=== PATIENT | male | born 1960 | race Caucasian/White ===

== ENCOUNTER 2017-08-17 09:04 | Emergency (ER) | payer BC ==
[~2017-08-17] VITALS: Ht 177.8 cm; Wt 65.0 kg
[~2017-08-17 09:04] MED LIST: MULT1TAB9 PO
[2017-08-17 09:05] VITALS: BP 142/82
[2017-08-17] MEDS ORDERED: DIAZEPAM 5 MG TABLET ONE (09:25)
[2017-08-17] MEDS ORDERED: OXYcodone/APAP 5/325MG TABLET ONE (09:25)
[2017-08-17] MEDS ORDERED: KETOROLAC 30 MG/1 ML ONE (09:25)
[2017-08-17] MEDS ORDERED: DIAZEPAM 5 MG TABLET PO ONE (09:30)
[2017-08-17] MEDS ORDERED: KETOROLAC 30 MG/1 ML IM ONE (09:30)
[2017-08-17] MEDS ORDERED: OXYcodone/APAP 5/325MG TABLET PO ONE (09:30)
== END 2017-08-17 12:18 | disposition home or self-care (01) ==
LOC: ED 10:28
DX: S29.012A Strain of muscle and tendon of back wall of thorax, initial encounter (principal); J44.9 Chronic obstructive pulmonary disease, unspecified; W01.0XXA Fall on same level from slipping, tripping and stumbling without subsequent striking against object, initial encounter; Y93.89 Activity, other specified; Y92.89 Other specified places as the place of occurrence of the external cause; Y99.8 Other external cause status
CPT/HCPCS: 72128; 96372; 99284; J1885

== ENCOUNTER 2017-08-23 13:25 | Emergency (ER) | payer BC ==
[~2017-08-23] VITALS: Ht 177.8 cm; Wt 63.4 kg
[2017-08-23 13:26] VITALS: BP 127/78
[2017-08-23] MEDS ORDERED: KETOROLAC 30 MG/1 ML IM ONE (14:00)
[2017-08-23] MEDS ORDERED: DIAZEPAM 5 MG TABLET PO ONE (14:00)
[2017-08-23] MEDS ORDERED: OXYcodone/APAP 7.5/325MG TABLET PO ONE (14:00)
[2017-08-23] MEDS ORDERED: KETOROLAC 30 MG/1 ML ONE (14:33)
[2017-08-23] MEDS ORDERED: DIAZEPAM 5 MG TABLET ONE (14:33)
[2017-08-23] MEDS ORDERED: OXYcodone/APAP 7.5/325MG TABLET ONE (14:45)
== END 2017-08-23 15:31 | disposition home or self-care (01) ==
LOC: ED 15:25
DX: S29.012A Strain of muscle and tendon of back wall of thorax, initial encounter (principal); J44.9 Chronic obstructive pulmonary disease, unspecified; F17.210 Nicotine dependence, cigarettes, uncomplicated; W01.0XXA Fall on same level from slipping, tripping and stumbling without subsequent striking against object, initial encounter; Y93.89 Activity, other specified; Y99.8 Other external cause status; Y92.89 Other specified places as the place of occurrence of the external cause
CPT/HCPCS: 72072; 96372; 99284; J1885

== ENCOUNTER 2017-10-08 21:31 | Inpatient (IN) | payer BC ==
[~2017-10-08] VITALS: Ht 177.8 cm; Wt 65.5 kg
[2017-10-08 23:07] LABS: BASOPHILS # (AUTO) 0.11 x10^3/uL (0-0.1); BASOPHILS % (AUTO) 1 % (0-1); EOSINOPHILS # (AUTO) 0.02 x10^3/uL (0-0.4); EOSINOPHILS % (AUTO) 0 % (1-7); LYMPHOCYTES # (AUTO) 0.75 x10^3/uL (1-3.4); LYMPHOCYTES % (AUTO) 7 % (22-44); MD NO; MEAN CORPUSCULAR HEMOGLOBIN 33.8 pg (27.5-34.5); MEAN CORPUSCULAR HGB CONC 34.1 g/dL (33.2-36.2); MEAN CORPUSCULAR VOLUME 99.2 fL (81-97); MEAN PLATELET VOLUME 7.1 fL (7.4-10.4); MONOCYTES # (AUTO) 1.12 x10^3/uL (0.2-0.8); MONOCYTES % (AUTO) 10 % (2-9); NEUTROPHILS # (AUTO) 9.09 x10^3/uL (1.8-6.8); NEUTROPHILS % (AUTO) 82 % (42-75); PLATELET COUNT 200 x10^3/uL (130-400); RED BLOOD COUNT 3.49 x10^6/uL (4.38-5.82); RED CELL DISTRIBUTION WIDTH 13.8 % (9.4-14.8)
[2017-10-08 23:14] LABS: ALANINE AMINOTRANSFERASE 30 U/L (12-78); ALBUMIN 3.1 g/dL (3.4-5.0); ANION GAP 7 mmol/L (5-15); CALCIUM 8.2 mg/dL (8.5-10.1); CHLORIDE 104 mmol/L (98-107); CREATININE 0.97 mg/dL (0.7-1.3)
[2017-10-08] MEDS ORDERED: PANTOPRAZOLE 80 MG in SODIUM CHLORIDE 0.9% 50 ML IVPB ONE (23:14)
[2017-10-08 23:17] LABS: ALKALINE PHOSPHATASE 106 U/L (45-117); BILIRUBIN,TOTAL 0.5 mg/dL (0.2-1.0)
[2017-10-08 23:24] LABS: INTERNATIONAL NORMALIZED RATIO 1.01 (0.93-1.1); PROTHROMBIN TIME 10.4 Seconds (9.6-11.5)
[2017-10-08] MEDS ORDERED: SODIUM CHLORIDE FLUSH 10ML SYR IVF ONE (23:30)
[2017-10-08] MEDS ORDERED: SODIUM CHLORIDE 0.9% 1,000ML IVBOLUS ONE (23:30)
[2017-10-09] MEDS: PANTOPRAZOLE 80 MG in SODIUM CHLORIDE 0.9% 100 ML IV SCH ×3 (00:19→17:45)
[2017-10-09] MEDS ORDERED: LORazepam 2 MG/ML, 1ML IV PRN ×5 (00:30)
[2017-10-09] MEDS ORDERED: LORazepam 0.5MG TABLET PO PRN (00:30)
[2017-10-09] MEDS ORDERED: ENALAPRILAT 1.25 MG/ML, 2ML IVPush PRN (00:30)
[2017-10-09] MEDS ORDERED: ONDANSETRON 2MG/ML, 2ML IVPush PRN (00:30)
[2017-10-09] MEDS ORDERED: METOCLOPRAMIDE 5 MG/ML, 2ML IVPush PRN (00:30)
[2017-10-09] MEDS ORDERED: ONDANSETRON ODT 4 MG PO PRN (00:30)
[2017-10-09] MEDS ORDERED: LORazepam 1MG TABLET PO PRN ×4 (00:30)
[2017-10-09] MEDS ORDERED: LABETALOL 5MG/ML, 20ML IVPush PRN (00:30)
[2017-10-09] MEDS ORDERED: METO25TA35 PO (00:57)
[2017-10-09] MEDS ORDERED: TIOT18CA INH (00:57)
[2017-10-09] MEDS ORDERED: ALBU1.25 NEB (00:57)
[2017-10-09] MEDS ORDERED: ASPI-496 PO (00:57)
[2017-10-09 01:05] LABS: FOLATE LEVEL 13.6 ng/mL (3.1-17.5)
[2017-10-09] MEDS ORDERED: IPRATROPIUM 0.5 MG/2.5 ML INHA ONE (01:37)
[2017-10-09 01:50] VITALS: BP 148/86
[2017-10-09] MEDS: SODIUM CHLORIDE 0.9% 1,000 ML IV SCH ×3 (02:12→21:57)
[2017-10-09] MEDS: NICOTINE 14MG/24 HR PATCH.TD24 TD SCH (02:16)
[2017-10-09] MEDS: IPRATROPIUM 0.5 MG/2.5 ML INHA NPPB SCH ×4 (03:00→19:18)
[2017-10-09] MEDS ORDERED: ALBUTEROL SULFATE 2.5 MG/3 ML NPPB PRN (03:00)
[2017-10-09] MEDS: METOPROLOL TARTRATE 25 MG TABLET PO SCH ×2 (05:51→18:06)
[2017-10-09] MEDS: MULTIVITAMINS/MINERALS TABLET PO SCH (08:29)
[2017-10-09] MEDS: FOLIC ACID 1 MG TABLET PO SCH (08:29)
[2017-10-09] MEDS: THIAMINE 100MG TABLET PO SCH (08:29)
[2017-10-09 09:00] VITALS: BP 148/76
[2017-10-09] MEDS ORDERED: FOLIC ACID PO SCH (09:00)
[2017-10-09] MEDS ORDERED: MULTIVITAMIN PO SCH (09:00)
[2017-10-09] MEDS ORDERED: IRON PO SCH (09:00)
[2017-10-09] MEDS ORDERED: [UNRECOGNIZED DRUG - OTHER] PO SCH (09:00)
[2017-10-09] MEDS: OXYcodone/APAP 5/325MG TABLET PO PRN ×2 (09:45→18:06)
[2017-10-09 15:08] VITALS: BP_SYST 123; BP_SYST 146; BP_DIAS 72; BP_DIAS 97
[2017-10-09 19:17] VITALS: BP 136/61
[2017-10-10 01:03] VITALS: BP 129/68
[2017-10-10 01:06] VITALS: BP 136/82
[2017-10-10] MEDS: IPRATROPIUM 0.5 MG/2.5 ML INHA NPPB SCH ×4 (03:00→19:47)
[2017-10-10] MEDS: METOPROLOL TARTRATE 25 MG TABLET PO SCH ×2 (06:00→17:37)
[2017-10-10] MEDS: NICOTINE 14MG/24 HR PATCH.TD24 TD SCH (06:01)
[2017-10-10 06:40] LABS: BASOPHILS # (AUTO) 0.04 x10^3/uL (0-0.1); BASOPHILS % (AUTO) 1 % (0-1); EOSINOPHILS # (AUTO) 0.07 x10^3/uL (0-0.4); EOSINOPHILS % (AUTO) 1 % (1-7); LYMPHOCYTES # (AUTO) 1.27 x10^3/uL (1-3.4); LYMPHOCYTES % (AUTO) 24 % (22-44); MD NO; MEAN CORPUSCULAR VOLUME 99.8 fL (81-97); MEAN PLATELET VOLUME 7.2 fL (7.4-10.4); MONOCYTES # (AUTO) 0.59 x10^3/uL (0.2-0.8); MONOCYTES % (AUTO) 11 % (2-9); NEUTROPHILS # (AUTO) 3.28 x10^3/uL (1.8-6.8); NEUTROPHILS % (AUTO) 63 % (42-75); PLATELET COUNT 184 x10^3/uL (130-400); RED BLOOD COUNT 3.07 x10^6/uL (4.38-5.82); RED CELL DISTRIBUTION WIDTH 13.9 % (9.4-14.8)
[2017-10-10 06:48] LABS: ALBUMIN 2.7 g/dL (3.4-5.0); ANION GAP 6 mmol/L (5-15); CALCIUM 7.8 mg/dL (8.5-10.1); CHLORIDE 107 mmol/L (98-107)
[2017-10-10 06:52] LABS: ALANINE AMINOTRANSFERASE 24 U/L (12-78); ALKALINE PHOSPHATASE 88 U/L (45-117); BILIRUBIN,TOTAL 0.5 mg/dL (0.2-1.0); CHOL/HDL RATIO 2.5; CHOLESTEROL, TOTAL 94 mg/dL (140-239); CREATININE 0.83 mg/dL (0.7-1.3); HDL CHOL % 39 % (26-37); HDL CHOLESTEROL (DIRECT) 37 mg/dL (40-60); LDL CHOLESTEROL,CALCULATED 36 mg/dL (54-169); TOTAL PROTEIN 5.6 g/dL (6.4-8.2); TRIGLYCERIDES 104 mg/dL (50-200); VLDL CHOLESTEROL 21 mg/dL (0-25)
[2017-10-10 07:39] VITALS: BP 131/73
[2017-10-10] MEDS: FOLIC ACID 1 MG TABLET PO SCH (08:47)
[2017-10-10] MEDS: THIAMINE 100MG TABLET PO SCH (08:47)
[2017-10-10] MEDS: PANTOPRAZOLE 40 MG IV IVPush SCH (08:47)
[2017-10-10] MEDS: MULTIVITAMINS/MINERALS TABLET PO SCH (08:47)
[2017-10-10] MEDS: SODIUM CHLORIDE 0.9% 1,000 ML IV SCH ×2 (08:47→17:37)
[2017-10-10] MEDS: OXYcodone/APAP 5/325MG TABLET PO PRN (09:19)
[2017-10-10 13:04] VITALS: BP 125/69
[2017-10-10 17:36] VITALS: BP 112/69
[2017-10-10 19:40] VITALS: BP 111/67
[2017-10-11 01:55] VITALS: BP 121/68
[2017-10-11] MEDS: IPRATROPIUM 0.5 MG/2.5 ML INHA NPPB SCH ×4 (03:00→20:30)
[2017-10-11] MEDS: SODIUM CHLORIDE 0.9% 1,000 ML IV SCH ×2 (03:50→14:33)
[2017-10-11] MEDS: NICOTINE 14MG/24 HR PATCH.TD24 TD SCH (05:28)
[2017-10-11] MEDS: METOPROLOL TARTRATE 25 MG TABLET PO SCH ×2 (05:28→17:48)
[2017-10-11 06:04] LABS: BASOPHILS # (AUTO) 0.03 x10^3/uL (0-0.1); BASOPHILS % (AUTO) 1 % (0-1); EOSINOPHILS # (AUTO) 0.04 x10^3/uL (0-0.4); EOSINOPHILS % (AUTO) 1 % (1-7); LYMPHOCYTES # (AUTO) 0.89 x10^3/uL (1-3.4); LYMPHOCYTES % (AUTO) 22 % (22-44); MD NO; MEAN CORPUSCULAR HEMOGLOBIN 33.7 pg (27.5-34.5); MEAN CORPUSCULAR HGB CONC 34.1 g/dL (33.2-36.2); MEAN CORPUSCULAR VOLUME 98.9 fL (81-97); MEAN PLATELET VOLUME 7.1 fL (7.4-10.4); MONOCYTES # (AUTO) 0.58 x10^3/uL (0.2-0.8); MONOCYTES % (AUTO) 14 % (2-9); NEUTROPHILS # (AUTO) 2.53 x10^3/uL (1.8-6.8); NEUTROPHILS % (AUTO) 62 % (42-75); PLATELET COUNT 176 x10^3/uL (130-400); RED BLOOD COUNT 2.78 x10^6/uL (4.38-5.82); RED CELL DISTRIBUTION WIDTH 14.1 % (9.4-14.8)
[2017-10-11 07:31] VITALS: BP 113/70
[2017-10-11] MEDS: FOLIC ACID 1 MG TABLET PO SCH (09:41)
[2017-10-11] MEDS: THIAMINE 100MG TABLET PO SCH (09:42)
[2017-10-11] MEDS: PANTOPRAZOLE 40 MG IV IVPush SCH (09:42)
[2017-10-11] MEDS: MULTIVITAMINS/MINERALS TABLET PO SCH (09:42)
[2017-10-11] MEDS: OXYcodone/APAP 5/325MG TABLET PO PRN (10:46)
[2017-10-11 12:29] VITALS: BP 138/72
[2017-10-11] MEDS: MOVIPREP POWDER 1 PREP KIT PO SCH (17:48)
[2017-10-11 18:49] VITALS: BP 134/74
[2017-10-12 01:41] VITALS: BP 115/68
[2017-10-12] MEDS: MOVIPREP POWDER 1 PREP KIT PO SCH ×2 (03:28→11:10)
[2017-10-12] MEDS: METOPROLOL TARTRATE 25 MG TABLET PO SCH ×2 (05:35→18:24)
[2017-10-12] MEDS: NICOTINE 14MG/24 HR PATCH.TD24 TD SCH (05:35)
[2017-10-12 05:54] LABS: BASOPHILS # (AUTO) 0.04 x10^3/uL (0-0.1); BASOPHILS % (AUTO) 1 % (0-1); EOSINOPHILS % (AUTO) 2 % (1-7); LYMPHOCYTES # (AUTO) 0.86 x10^3/uL (1-3.4); LYMPHOCYTES % (AUTO) 17 % (22-44); MD NO; MEAN CORPUSCULAR HEMOGLOBIN 34.1 pg (27.5-34.5); MEAN CORPUSCULAR HGB CONC 33.9 g/dL (33.2-36.2); MEAN CORPUSCULAR VOLUME 100.6 fL (81-97); MEAN PLATELET VOLUME 6.9 fL (7.4-10.4); MONOCYTES # (AUTO) 0.55 x10^3/uL (0.2-0.8); MONOCYTES % (AUTO) 11 % (2-9); NEUTROPHILS # (AUTO) 3.43 x10^3/uL (1.8-6.8); NEUTROPHILS % (AUTO) 69 % (42-75); PLATELET COUNT 207 x10^3/uL (130-400); RED BLOOD COUNT 2.88 x10^6/uL (4.38-5.82); RED CELL DISTRIBUTION WIDTH 13.8 % (9.4-14.8)
[2017-10-12 06:01] LABS: ANION GAP 7 mmol/L (5-15); CALCIUM 7.9 mg/dL (8.5-10.1); CHLORIDE 110 mmol/L (98-107); CREATININE 0.83 mg/dL (0.7-1.3)
[2017-10-12 07:00] VITALS: BP 139/79
[2017-10-12] MEDS: IPRATROPIUM 0.5 MG/2.5 ML INHA NPPB SCH ×5 (08:00→20:00)
[2017-10-12] MEDS: PANTOPRAZOLE 40 MG IV IVPush SCH (08:35)
[2017-10-12] MEDS: MULTIVITAMINS/MINERALS TABLET PO SCH (08:36)
[2017-10-12] MEDS: FOLIC ACID 1 MG TABLET PO SCH (08:36)
[2017-10-12] MEDS: THIAMINE 100MG TABLET PO SCH (08:36)
[2017-10-12 10:34] LABS: MEAN CORPUSCULAR HEMOGLOBIN 34.7 pg (27.5-34.5); MEAN CORPUSCULAR HGB CONC 34.6 g/dL (33.2-36.2); MEAN CORPUSCULAR VOLUME 100.3 fL (81-97); MEAN PLATELET VOLUME 7.2 fL (7.4-10.4); PLATELET COUNT 233 x10^3/uL (130-400); RED BLOOD COUNT 2.25 x10^6/uL (4.38-5.82); RED CELL DISTRIBUTION WIDTH 13.8 % (9.4-14.8)
[2017-10-12 10:41] LABS: ALBUMIN 2.2 g/dL (3.4-5.0); ANION GAP 9 mmol/L (5-15); CALCIUM 6.7 mg/dL (8.5-10.1); CHLORIDE 113 mmol/L (98-107)
[2017-10-12 10:47] LABS: ALANINE AMINOTRANSFERASE 28 U/L (12-78); ALKALINE PHOSPHATASE 60 U/L (45-117); BILIRUBIN,TOTAL 0.3 mg/dL (0.2-1.0); TOTAL PROTEIN 4.6 g/dL (6.4-8.2); TROPONIN I < 0.015 ng/mL (0.000-0.045)
[2017-10-12 11:04] VITALS: BP 106/65
[2017-10-12] MEDS: SODIUM CHLORIDE 0.9% 1,000 ML IV SCH ×3 (11:10→20:11)
[2017-10-12] MEDS ORDERED: LABETALOL 5MG/ML, 20ML ONE (11:18)
[2017-10-12] MEDS ORDERED: PROPOFOL 10 MG/ML, 20ML ONE (11:18)
[2017-10-12] MEDS ORDERED: SUCCINYLCHOLINE 20 MG/ML, 10ML ONE (11:18)
[2017-10-12] MEDS ORDERED: ALBUTEROL SULFATE 2.5 MG/3 ML NPPB PRN (12:00)
[2017-10-12] MEDS ORDERED: LABETALOL 5MG/ML, 20ML IV PRN (12:00)
[2017-10-12] MEDS ORDERED: FENTANYL PF 100 MCG/2ML IV PRN (12:00)
[2017-10-12] MEDS ORDERED: LORazepam 2 MG/ML, 1ML IVPush PRN (12:00)
[2017-10-12] MEDS ORDERED: OXYcodone 5 MG/5 ML ORAL.SOL UDC PO PRN (12:00)
[2017-10-12] MEDS ORDERED: PROMETHAZINE 25 MG/ML, 1ML IV PRN (12:00)
[2017-10-12] MEDS ORDERED: hydrALAzine 20 MG/ML, 1ML IV PRN (12:00)
[2017-10-12] MEDS ORDERED: HYDROmorphone 1 MG/ML, 1ML IV PRN (12:00)
[2017-10-12 12:18] VITALS: BP 132/70
[2017-10-12] MEDS ORDERED: PANTOPRAZOLE 80 MG in SODIUM CHLORIDE 0.9% 50 ML IV ONE (12:30)
[2017-10-12 12:38] LABS: MD YES
[2017-10-12 12:40] LABS: <PLATELET ESTIMATE> ADEQUATE; <PLT MORPHOLOGY> NORMAL PLT MORPH; ANISOCYTOSIS 1+; EOS#(MANUAL) 0.07 x10^3/uL (0.0-0.4); EOS% (MANUAL) 1 % (1-7); LYMPH#(MANUAL) 1.18 x10^3/uL (1-3.4); LYMPHS% (MANUAL) 16 % (22-44); MONOS#(MANUAL) 0.52 x10^3/uL (0.3-2.7); MONOS% (MANUAL) 7 % (2-9); SEG#(MANUAL) 5.62 x10^3/uL (1.8-6.8); SEGS% (MANUAL) 76 % (42-75)
[2017-10-12] MEDS: PANTOPRAZOLE 80 MG in SODIUM CHLORIDE 0.9% 100 ML IV SCH ×2 (14:31→23:05)
[2017-10-12] MEDS: DIPHENHYDRAMINE 50 MG/ML, 1ML IVPush PRN (22:11)
[2017-10-13] MEDS: IPRATROPIUM 0.5 MG/2.5 ML INHA NPPB SCH ×4 (02:52→21:00)
[2017-10-13] MEDS: SODIUM CHLORIDE 0.9% 1,000 ML IV SCH (05:08)
[2017-10-13] MEDS: NICOTINE 14MG/24 HR PATCH.TD24 TD SCH (05:15)
[2017-10-13] MEDS: METOPROLOL TARTRATE 25 MG TABLET PO SCH ×2 (06:00→18:00)
[2017-10-13 06:38] LABS: BASOPHILS # (AUTO) 0.03 x10^3/uL (0-0.1); BASOPHILS % (AUTO) 1 % (0-1); EOSINOPHILS # (AUTO) 0.07 x10^3/uL (0-0.4); EOSINOPHILS % (AUTO) 2 % (1-7); LYMPHOCYTES # (AUTO) 0.97 x10^3/uL (1-3.4); LYMPHOCYTES % (AUTO) 19 % (22-44); MD NO; MEAN CORPUSCULAR HEMOGLOBIN 33.2 pg (27.5-34.5); MEAN CORPUSCULAR HGB CONC 34.2 g/dL (33.2-36.2); MEAN CORPUSCULAR VOLUME 97.3 fL (81-97); MEAN PLATELET VOLUME 6.7 fL (7.4-10.4); MONOCYTES # (AUTO) 0.58 x10^3/uL (0.2-0.8); MONOCYTES % (AUTO) 11 % (2-9); NEUTROPHILS # (AUTO) 3.44 x10^3/uL (1.8-6.8); NEUTROPHILS % (AUTO) 68 % (42-75); PLATELET COUNT 198 x10^3/uL (130-400); RED BLOOD COUNT 2.65 x10^6/uL (4.38-5.82); RED CELL DISTRIBUTION WIDTH 16.1 % (9.4-14.8)
[2017-10-13 06:46] LABS: ANION GAP 7 mmol/L (5-15); CALCIUM 7.3 mg/dL (8.5-10.1); CHLORIDE 111 mmol/L (98-107)
[2017-10-13 06:47] LABS: CREATININE 0.83 mg/dL (0.7-1.3)
[2017-10-13] MEDS ORDERED: POTASSIUM CHLORIDE 10% 40 MEQ/30 ML UDC PO ONE (08:00)
[2017-10-13] MEDS: PANTOPRAZOLE 80 MG in SODIUM CHLORIDE 0.9% 100 ML IV SCH ×2 (13:06→21:23)
[2017-10-13] MEDS: MULTIVITAMINS/MINERALS TABLET PO SCH (13:11)
[2017-10-13] MEDS: FOLIC ACID 1 MG TABLET PO SCH (13:11)
[2017-10-13] MEDS ORDERED: POTASSIUM CHLORIDE 10% 40 MEQ/30 ML UDC ONE (13:13)
[2017-10-13 17:42] VITALS: BP 125/73
[2017-10-13 18:39] VITALS: BP 122/49
[2017-10-13] MEDS: DIPHENHYDRAMINE 50 MG/ML, 1ML IVPush PRN (21:23)
[2017-10-14 01:15] VITALS: BP 104/61
[2017-10-14] MEDS: IPRATROPIUM 0.5 MG/2.5 ML INHA NPPB SCH ×4 (02:51→15:54)
[2017-10-14] MEDS: METOPROLOL TARTRATE 25 MG TABLET PO SCH ×2 (03:55→17:43)
[2017-10-14] MEDS: NICOTINE 14MG/24 HR PATCH.TD24 TD SCH (05:23)
[2017-10-14] MEDS ORDERED: POTASSIUM CHLORIDE 40 MEQ in SODIUM CHLORIDE 0.9% 500 ML IV ONE (06:30)
[2017-10-14 06:43] LABS: ANION GAP 4 mmol/L (5-15); CHLORIDE 110 mmol/L (98-107); CREATININE 0.76 mg/dL (0.7-1.3)
[2017-10-14] MEDS: THIAMINE 100MG TABLET PO SCH (08:37)
[2017-10-14] MEDS: MULTIVITAMINS/MINERALS TABLET PO SCH (08:37)
[2017-10-14] MEDS: FOLIC ACID 1 MG TABLET PO SCH (08:37)
[2017-10-14] MEDS: PANTOPRAZOLE 80 MG in SODIUM CHLORIDE 0.9% 100 ML IV SCH ×2 (08:38→17:43)
[2017-10-14] MEDS: OXYcodone/APAP 5/325MG TABLET PO PRN (08:38)
[2017-10-14 09:58] VITALS: BP 99/61
[2017-10-14] MEDS ORDERED: ALBUTEROL/IPRATROPIUM 2.5MG/0.5MG, 3 ML HHN SCH (11:00)
[2017-10-14 12:53] LABS: BASOPHILS # (AUTO) 0.03 x10^3/uL (0-0.1); BASOPHILS % (AUTO) 1 % (0-1); EOSINOPHILS # (AUTO) 0.09 x10^3/uL (0-0.4); EOSINOPHILS % (AUTO) 2 % (1-7); LYMPHOCYTES # (AUTO) 0.96 x10^3/uL (1-3.4); LYMPHOCYTES % (AUTO) 16 % (22-44); MD NO; MEAN CORPUSCULAR HEMOGLOBIN 33.7 pg (27.5-34.5); MEAN CORPUSCULAR HGB CONC 33.9 g/dL (33.2-36.2); MEAN CORPUSCULAR VOLUME 99.3 fL (81-97); MONOCYTES # (AUTO) 0.81 x10^3/uL (0.2-0.8); MONOCYTES % (AUTO) 13 % (2-9); NEUTROPHILS # (AUTO) 4.16 x10^3/uL (1.8-6.8); NEUTROPHILS % (AUTO) 69 % (42-75); PLATELET COUNT 227 x10^3/uL (130-400); RED BLOOD COUNT 2.43 x10^6/uL (4.38-5.82); RED CELL DISTRIBUTION WIDTH 16.2 % (9.4-14.8)
[2017-10-14] MEDS ORDERED: MAGNESIUM SULFATE PMX 2GM/50ML 50 ML IV ONE (15:00)
[2017-10-14 15:55] VITALS: BP 105/67
[2017-10-14 19:01] LABS: BASOPHILS # (AUTO) 0.04 x10^3/uL (0-0.1); BASOPHILS % (AUTO) 1 % (0-1); EOSINOPHILS # (AUTO) 0.13 x10^3/uL (0-0.4); EOSINOPHILS % (AUTO) 2 % (1-7); LYMPHOCYTES # (AUTO) 0.96 x10^3/uL (1-3.4); LYMPHOCYTES % (AUTO) 15 % (22-44); MD NO; MEAN CORPUSCULAR HGB CONC 34.3 g/dL (33.2-36.2); MEAN CORPUSCULAR VOLUME 99.2 fL (81-97); MEAN PLATELET VOLUME 7.3 fL (7.4-10.4); MONOCYTES # (AUTO) 0.93 x10^3/uL (0.2-0.8); MONOCYTES % (AUTO) 15 % (2-9); NEUTROPHILS # (AUTO) 4.29 x10^3/uL (1.8-6.8); NEUTROPHILS % (AUTO) 68 % (42-75); PLATELET COUNT 200 x10^3/uL (130-400); RED BLOOD COUNT 2.23 x10^6/uL (4.38-5.82); RED CELL DISTRIBUTION WIDTH 15.8 % (9.4-14.8)
[2017-10-14 19:42] VITALS: BP 103/64
[2017-10-14] MEDS: DIPHENHYDRAMINE 50 MG/ML, 1ML IVPush PRN (19:45)
[2017-10-14] MEDS: TEMAZEPAM 15 MG CAPSULE PO PRN (21:34)
[2017-10-15] VITALS (11 sets, daily range): BP systolic 91–110; BP diastolic 43–71
[2017-10-15] MEDS: IPRATROPIUM 0.5 MG/2.5 ML INHA NPPB SCH ×4 (03:00→20:53)
[2017-10-15] MEDS: METOPROLOL TARTRATE 25 MG TABLET PO SCH ×2 (03:45→18:00)
[2017-10-15] MEDS: NICOTINE 14MG/24 HR PATCH.TD24 TD SCH (06:03)
[2017-10-15] MEDS ORDERED: MAGNESIUM SULFATE PMX 2GM/50ML 50 ML IV ONE (06:30)
[2017-10-15 06:54] LABS: MD NO
[2017-10-15 06:56] LABS: BASOPHILS # (AUTO) 0.06 x10^3/uL (0-0.1); BASOPHILS % (AUTO) 1 % (0-1); EOSINOPHILS % (AUTO) 2 % (1-7); HEMOGRAM NOTE RECHECKED; LYMPHOCYTES # (AUTO) 0.74 x10^3/uL (1-3.4); LYMPHOCYTES % (AUTO) 15 % (22-44); MEAN CORPUSCULAR HEMOGLOBIN 33.3 pg (27.5-34.5); MEAN CORPUSCULAR HGB CONC 34.3 g/dL (33.2-36.2); MEAN CORPUSCULAR VOLUME 97.1 fL (81-97); MEAN PLATELET VOLUME 7.7 fL (7.4-10.4); MONOCYTES # (AUTO) 0.68 x10^3/uL (0.2-0.8); MONOCYTES % (AUTO) 14 % (2-9); NEUTROPHILS # (AUTO) 3.38 x10^3/uL (1.8-6.8); NEUTROPHILS % (AUTO) 68 % (42-75); PLATELET COUNT 185 x10^3/uL (130-400); RED BLOOD COUNT 2.53 x10^6/uL (4.38-5.82); RED CELL DISTRIBUTION WIDTH 16.7 % (9.4-14.8)
[2017-10-15 06:57] LABS: ALANINE AMINOTRANSFERASE 21 U/L (12-78); ALBUMIN 2.4 g/dL (3.4-5.0); ANION GAP 8 mmol/L (5-15); CALCIUM 7.7 mg/dL (8.5-10.1); CHLORIDE 105 mmol/L (98-107); CREATININE 0.81 mg/dL (0.7-1.3)
[2017-10-15 06:59] LABS: ALKALINE PHOSPHATASE 58 U/L (45-117); BILIRUBIN,TOTAL 0.8 mg/dL (0.2-1.0); TOTAL PROTEIN 4.9 g/dL (6.4-8.2)
[2017-10-15] MEDS: PANTOPRAZOLE 80 MG in SODIUM CHLORIDE 0.9% 100 ML IV SCH ×2 (07:56→19:34)
[2017-10-15] MEDS: FOLIC ACID 1 MG TABLET PO SCH (07:57)
[2017-10-15] MEDS: OMEPRAZOLE 20 MG CAPSULE.DR PO SCH ×2 (07:57→17:54)
[2017-10-15] MEDS: MULTIVITAMINS/MINERALS TABLET PO SCH (07:58)
[2017-10-15] MEDS: THIAMINE 100MG TABLET PO SCH (07:58)
[2017-10-15] MEDS: OXYcodone/APAP 5/325MG TABLET PO PRN (07:58)
[2017-10-15 19:34] LABS: MEAN CORPUSCULAR HEMOGLOBIN 33.4 pg (27.5-34.5); MEAN CORPUSCULAR HGB CONC 34.7 g/dL (33.2-36.2); MEAN CORPUSCULAR VOLUME 96.2 fL (81-97); MEAN PLATELET VOLUME 7.7 fL (7.4-10.4); PLATELET COUNT 213 x10^3/uL (130-400); RED BLOOD COUNT 2.85 x10^6/uL (4.38-5.82); RED CELL DISTRIBUTION WIDTH 16.7 % (9.4-14.8)
[2017-10-15 19:37] LABS: BASOPHILS # (AUTO) 0.02 x10^3/uL (0-0.1); BASOPHILS % (AUTO) 0 % (0-1); EOSINOPHILS # (AUTO) 0.16 x10^3/uL (0-0.4); EOSINOPHILS % (AUTO) 2 % (1-7); LYMPHOCYTES # (AUTO) 1.16 x10^3/uL (1-3.4); LYMPHOCYTES % (AUTO) 17 % (22-44); MD SCAN; MONOCYTES # (AUTO) 1.02 x10^3/uL (0.2-0.8); MONOCYTES % (AUTO) 15 % (2-9); NEUTROPHILS # (AUTO) 4.67 x10^3/uL (1.8-6.8); NEUTROPHILS % (AUTO) 66 % (42-75)
[2017-10-15] MEDS: TEMAZEPAM 15 MG CAPSULE PO PRN (20:27)
[2017-10-15] MEDS: DIPHENHYDRAMINE 50 MG/ML, 1ML IVPush PRN (20:27)
[2017-10-16 01:40] VITALS: BP 110/65
[2017-10-16] MEDS: IPRATROPIUM 0.5 MG/2.5 ML INHA NPPB SCH ×4 (03:00→20:48)
[2017-10-16] MEDS: PANTOPRAZOLE 80 MG in SODIUM CHLORIDE 0.9% 100 ML IV SCH (05:42)
[2017-10-16] MEDS: METOPROLOL TARTRATE 25 MG TABLET PO SCH ×2 (05:42→18:00)
[2017-10-16 06:36] LABS: MEAN CORPUSCULAR HGB CONC 34.1 g/dL (33.2-36.2); MEAN CORPUSCULAR VOLUME 96.7 fL (81-97); MEAN PLATELET VOLUME 7.9 fL (7.4-10.4); PLATELET COUNT 184 x10^3/uL (130-400); RED BLOOD COUNT 2.35 x10^6/uL (4.38-5.82)
[2017-10-16 06:41] LABS: ALANINE AMINOTRANSFERASE 20 U/L (12-78); ALBUMIN 2.2 g/dL (3.4-5.0); ANION GAP 3 mmol/L (5-15); CALCIUM 7.6 mg/dL (8.5-10.1); CHLORIDE 108 mmol/L (98-107); CREATININE 0.92 mg/dL (0.7-1.3)
[2017-10-16 06:44] LABS: ALKALINE PHOSPHATASE 62 U/L (45-117); BILIRUBIN,TOTAL 0.2 mg/dL (0.2-1.0); TOTAL PROTEIN 4.7 g/dL (6.4-8.2)
[2017-10-16 07:51] VITALS: BP 99/64
[2017-10-16 07:57] LABS: MD YES
[2017-10-16 08:02] LABS: BASOS#(MANUAL) 0.15 x10^3/uL (0-0.1); BASOS% (MANUAL) 3 % (0-1); EOS% (MANUAL) 2 % (1-7); LYMPH#(MANUAL) 1.33 x10^3/uL (1-3.4); LYMPHS% (MANUAL) 26 % (22-44); MONOS#(MANUAL) 0.51 x10^3/uL (0.3-2.7); MONOS% (MANUAL) 10 % (2-9); SEG#(MANUAL) 3.01 x10^3/uL (1.8-6.8); SEGS% (MANUAL) 59 % (42-75)
[2017-10-16 08:03] LABS: ANISOCYTOSIS 1+; POLYCHROMASIA 1+
[2017-10-16 08:04] LABS: <PLATELET ESTIMATE> ADEQUATE; <PLT MORPHOLOGY> NORMAL PLT MORPH
[2017-10-16] MEDS: NICOTINE 14MG/24 HR PATCH.TD24 TD SCH (10:40)
[2017-10-16] MEDS: FOLIC ACID 1 MG TABLET PO SCH (10:42)
[2017-10-16] MEDS: MULTIVITAMINS/MINERALS TABLET PO SCH (10:42)
[2017-10-16] MEDS: THIAMINE 100MG TABLET PO SCH (10:43)
[2017-10-16] MEDS: OMEPRAZOLE 20 MG CAPSULE.DR PO SCH ×2 (10:43→18:20)
[2017-10-16] MEDS ORDERED: CYANOCOBALAMIN 1,000 MCG/ML, 1ML IM ONE (15:30)
[2017-10-16 15:36] VITALS: BP 96/60
[2017-10-16] MEDS: PANTOPRAZOLE 40 MG IV IVPush SCH (17:06)
[2017-10-16 20:05] VITALS: BP 100/64
[2017-10-16] MEDS: DIPHENHYDRAMINE 50 MG/ML, 1ML IVPush PRN (21:11)
[2017-10-17 01:45] VITALS: BP 93/53
[2017-10-17] MEDS: PANTOPRAZOLE 40 MG IV IVPush SCH (01:55)
[2017-10-17] MEDS: IPRATROPIUM 0.5 MG/2.5 ML INHA NPPB SCH ×3 (02:32→15:08)
[2017-10-17] MEDS: METOPROLOL TARTRATE 25 MG TABLET PO SCH (04:59)
[2017-10-17 06:30] LABS: MEAN CORPUSCULAR HEMOGLOBIN 33.3 pg (27.5-34.5); MEAN CORPUSCULAR HGB CONC 34.5 g/dL (33.2-36.2); MEAN CORPUSCULAR VOLUME 96.4 fL (81-97); MEAN PLATELET VOLUME 8.1 fL (7.4-10.4); PLATELET COUNT 194 x10^3/uL (130-400); RED BLOOD COUNT 2.18 x10^6/uL (4.38-5.82); RED CELL DISTRIBUTION WIDTH 16.3 % (9.4-14.8)
[2017-10-17 06:33] LABS: ALBUMIN 2.3 g/dL (3.4-5.0); ANION GAP 5 mmol/L (5-15); CALCIUM 7.7 mg/dL (8.5-10.1); CHLORIDE 107 mmol/L (98-107)
[2017-10-17 06:39] LABS: ALANINE AMINOTRANSFERASE 22 U/L (12-78); ALKALINE PHOSPHATASE 76 U/L (45-117); BILIRUBIN,TOTAL 0.2 mg/dL (0.2-1.0); TOTAL PROTEIN 4.8 g/dL (6.4-8.2)
[2017-10-17 07:08] VITALS: BP 95/58
[2017-10-17 07:35] LABS: MD YES
[2017-10-17 07:36] LABS: EOS#(MANUAL) 0.13 x10^3/uL (0.0-0.4); EOS% (MANUAL) 2 % (1-7); LYMPH#(MANUAL) 1.09 x10^3/uL (1-3.4); LYMPHS% (MANUAL) 17 % (22-44); SEG#(MANUAL) 4.29 x10^3/uL (1.8-6.8); SEGS% (MANUAL) 67 % (42-75)
[2017-10-17 07:37] LABS: ANISOCYTOSIS 1+; BASOS#(MANUAL) 0.13 x10^3/uL (0-0.1); BASOS% (MANUAL) 2 % (0-1); MONOS#(MANUAL) 0.77 x10^3/uL (0.3-2.7); MONOS% (MANUAL) 12 % (2-9); POLYCHROMASIA 1+
[2017-10-17 07:40] LABS: <PLATELET ESTIMATE> ADEQUATE; <PLT MORPHOLOGY> NORMAL PLT MORPH
[2017-10-17] MEDS: NICOTINE 14MG/24 HR PATCH.TD24 TD SCH (08:05)
[2017-10-17] MEDS: THIAMINE 100MG TABLET PO SCH (08:06)
[2017-10-17] MEDS: OMEPRAZOLE 20 MG CAPSULE.DR PO SCH (08:06)
[2017-10-17] MEDS: MULTIVITAMINS/MINERALS TABLET PO SCH (08:06)
[2017-10-17] MEDS: FOLIC ACID 1 MG TABLET PO SCH (08:06)
[2017-10-17 13:45] VITALS: BP 97/61
[2017-10-17] MEDS ORDERED: PANT40TA5 PO (15:08)
[2017-10-17] MEDS ORDERED: FOLI-17 PO (15:08)
[2017-10-17] MEDS ORDERED: THIA100T67 PO (15:08)
[2017-10-17] MEDS ORDERED: PANTOPROZOLE 40MG TABLET PO SCH (21:00)
== END 2017-10-17 15:45 | disposition home or self-care (01) | DRG 432 ==
LOC: ED 23:30 → EDIP 23:56 → 4EST 10-09 01:47 → CCU 10-12 10:36 → 3NE 10-13 17:23
PROVIDERS: ADMIT Hospitalist; ATTEND Hospitalist
PROC: 0DJD8ZZ Inspection of Lower Intestinal Tract, Via Natural or Artificial Opening Endoscopic (ICD-10-PCS; 2017-10-12)
PROC: 30233N1 Transfusion of Nonautologous Red Blood Cells into Peripheral Vein, Percutaneous Approach (ICD-10-PCS; 2017-10-12)
PROC: 0DJ08ZZ Inspection of Upper Intestinal Tract, Via Natural or Artificial Opening Endoscopic (ICD-10-PCS; principal; 2017-10-12 10:00)
DX: K70.10 Alcoholic hepatitis without ascites (principal); E43 Unspecified severe protein-calorie malnutrition; D62 Acute posthemorrhagic anemia; J44.1 Chronic obstructive pulmonary disease with (acute) exacerbation; K92.1 Melena; E87.1 Hypo-osmolality and hyponatremia; K62.5 Hemorrhage of anus and rectum; K26.9 Duodenal ulcer, unspecified as acute or chronic, without hemorrhage or perforation; F17.210 Nicotine dependence, cigarettes, uncomplicated; M54.5 Low back pain; R73.9 Hyperglycemia, unspecified; I48.2 Chronic atrial fibrillation; I95.9 Hypotension, unspecified; F10.20 Alcohol dependence, uncomplicated; D53.9 Nutritional anemia, unspecified; D50.9 Iron deficiency anemia, unspecified; Z68.20 Body mass index [BMI] 20.0-20.9, adult; Z79.01 Long term (current) use of anticoagulants; Z80.3 Family history of malignant neoplasm of breast; Z91.81 History of falling
CPT/HCPCS: 36415; 99285; J7644; 71045; 80048; 80053; 80061; 80307; 82607; 82746; 82962; 83605; 83690; 83735; 84100; 84484; 85014; 85018; 85025; 85610; 86850; 86900; 86923; 87081; 93005; 94640; 96374; G0378; J2704; J3480; C9113; J0330; J1200; J2060; J3420; J3475; J7030; J7040; P9016